=== PATIENT | male | born 1955 | race Caucasian/White ===

== ENCOUNTER → 2018-08-25 | Outpatient (CLI) | payer OTHER ==
--- NOTE | 2018-08-25 06:56 | MR ---
EXAMINATION TYPE: MR shoulder LT wo con DATE OF EXAM: 08/25/2018 COMPARISON: Outside left shoulder x-ray August 04, 2018 HISTORY: Pain in left shoulder per order. Pain with difficulty raising overhead and limited movement for 6 months per patient. TECHNIQUE: Multiplanar, multisequence imaging of the left shoulder is performed without contrast. FINDINGS: Rotator Cuff: There is focal articular surface partial tear noted involving the anterior fibers of th e infraspinatus tendon measuring 10 mm AP diameter parasagittal image 5 and 4 mm transversely paracor onal image 14. Supraspinatus tendon appears intact. Rotator cuff muscle bulk is preserved. Subscapula ris tendon is intact. There is fluid signal subdeltoid/subacromial bursa with slight irregularity ashley ng the bursal surface of the infraspinatus tendon also identified. Acromioclavicular Joint: There is moderate to severe joint space loss with mild to moderate capsular hypertrophy at acromioclavicular joint. Mild to moderate inferior spurring of the distal clavicle is seen. Distal acromion morphology is unremarkable. Loss of underlying fat plane at distal clavicle is noted. Glenohumeral Joint: There is small to moderate glenohumeral joint effusion. There is mild to moderate joint space loss. Labrum: The labrum appears grossly intact given limitation of non-arthrogram study. Biceps Tendon: The long head of biceps is in normal location within bicipital groove. Bone marrow signal: Subchondral cystic change superolateral humeral head is present. Other: No additional significant abnormality is appreciated. IMPRESSION: Partial rim rent tear involving the anterior aspect of the infraspinatus tendon with tend inosis along bursal surface. Moderate to severe AC joint arthropathy with suggestion of underlying im pingement. Correlate clinically.
== END | disposition home or self-care (01) ==
LOC: RADMRIMAIN 06:10
PROVIDERS: ATTEND Orthopaedic Surgery
DX: M75.112 Incomplete rotator cuff tear or rupture of left shoulder, not specified as traumatic (principal); M19.012 Primary osteoarthritis, left shoulder; M75.82 Other shoulder lesions, left shoulder

== ENCOUNTER → 2021-11-06 | Day surgery (SDC) | payer BC, OTHER ==
[2021-11-04 12:42] VITALS: BMI 21.7
--- NOTE | 2021-11-05 17:30 | HP ---
HISTORY AND PHYSICAL DATE OF SURGERY: 11/06/2021 Ron Peacock is a 65-year-old gentleman seen with symptomatic right carpal tunnel syndrome. We discussed options. He elected to proceed with decompression of right median nerve. Consent was obtained. PAST MEDICAL HISTORY: Depression, hypertension, hyperlipidemia. PAST SURGICAL HISTORY: Knee arthroscopy, cataract surgery. DAILY MEDICATIONS: Lisinopril, Lipitor, aspirin. ALLERGIES: NONE. SOCIAL HISTORY: He smokes half pack of cigarettes daily. PHYSICAL EVALUATION OF THE RIGHT HAND: He has a positive carpal compression, carpal Tinel's, exacerbating numbness and tingling throughout the median nerve distribution. He does have some decreased sensation throughout the median nerve distribution. He does not have any triggering of the digits. There is good capillary refill and a good radial pulse present. Radiographs of the wrist reveal some mild osteoarthritic changes. IMPRESSION: 1. Right carpal tunnel syndrome. 2. Hypertension. 3. Hyperlipidemia. PLAN: Decompression, right median nerve. MMODL / IJN: [id number] /
[~2021-11-06] MED LIST: DEXAMETHASONE SOD PHOSPHATE 4 MG/ML 1 ML VIAL IV ONE; HYDROmorphone 0.5 MG/0.5 ML SYRINGE IVP PRN; LACTATED RINGERS 1,000 ML IV ONE; LACTATED RINGERS 1,000 ML IV SCH; LIDOCAINE 1% INJ 10MG/ML (20 ML MDV) SQ ONE; MIDAZOLAM 2 MG/2 ML VIAL ONE; ONDANSETRON 4 MG/2 ML VIAL IVP ONE; PROPOFOL 10 MG/ML 20 ML VIAL IV ONE; fentaNYL (PF) 50 MCG/ML 2 ML AMP ONE
[2021-11-06 12:50] VITALS: TEMP 97.9
--- NOTE | 2021-11-06 17:24 | P.OP ---
Date of Procedure: 11/06/21 Preoperative Diagnosis: Right carpal tunnel syndrome Postoperative Diagnosis: Right carpal tunnel syndrome Procedure(s) Performed: Decompression right median nerve Anesthesia: MAC, local Surgeon: Miguel Angel Gonzalez Estimated Blood Loss (ml): 0 Pathology: none sent Condition: stable Disposition: PACU Indications for Procedure: 65-year-old gentleman seen with symptomatic right carpal syndrome. After treatment options were discussed, he elected to proceed with decompression right median nerve. Operative Findings: See description of procedure Description of Procedure: Patient was taken to the operative suite. He received preoperative IV antibiotics. He underwent IV sedation by the department of anesthesia. Well- padded tourniquet placed proximal right upper extremity. Right upper extremity prepped and draped in the normal sterile orthopedic fashion. I infiltrated the proposed incision site with 10 mL quarter percent plain Marcaine. When sufficient local analgesia was noted the extremity was elevated and tourniquet insufflated to 250. I made an incision beginning at the distal volar wrist crease extending distally approximately 3 cm in line with the fourth metacarpal sharply through skin. Dissection was taken down through the subcutaneous soft tissues and through the palmar fascia to the transverse carpal ligament. I made a small incision through the chairs carpal ligament. I completed the release proximally and distally with blunt Metzenbaums. There was complete release of the transverse carpal ligament. There was good decompression of the nerve. The wound was irrigated. The skin margins were proximal nylon suture. I applied sterile dressings followed by coban. The tourniquet was released with immediate capillary refill noted. The patient was now awakened and transferred to recovery in stable condition.
[2021-11-06 17:42] VITALS: BP 102/64; PULSE 77; RESP 16
== END | disposition home or self-care (01) ==
LOC: OR 12:33
PROVIDERS: ATTEND Orthopaedic Surgery
DX: G56.01 Carpal tunnel syndrome, right upper limb (principal); I10 Essential (primary) hypertension; E78.5 Hyperlipidemia, unspecified; F32.9 Major depressive disorder, single episode, unspecified; Z79.899 Other long term (current) drug therapy; Z79.82 Long term (current) use of aspirin; F17.210 Nicotine dependence, cigarettes, uncomplicated
CPT/HCPCS: 64721; J2250; J1100; J2405; J2001; J3010; J2704

== ENCOUNTER → 2023-12-22 | Outpatient (CLI) | payer MEDICARE, BC ==
--- NOTE | 2023-12-22 11:16 | FL ---
EXAMINATION TYPE: FL barium enema w air contrast DATE OF EXAM: 12/22/2023 COMPARISON: 01/07/2015 HISTORY: colon cancer screening due to previous failed colonoscopies/ torturous colon. TECHNIQUE: A double contrast barium enema study is performed. A total of 3 minute and 55 seconds of fluoroscopic time was utilized during procedure and 28 images obtained. Total dose area product (DA P) in uGy*m?, mGy*cm? (or similar): not provided. FINDINGS: Clarity Developer view of the abdomen shows overall non-obstructive bowel gas pattern. No evidence of any mass or polyp, obstructing or constricting lesion throughout the colon. Minimal d iverticulosis is noted. There is redundancy to the right colon. Some limitation in evaluation of the colonic mucosa due to retained fluid and suboptimal bowel preparation. This may be related to the red undant right colon. Appendix was filled and appeared normal. The terminal ileum was refluxed and appears within normal l imits. fl time 3:55 seconds. Polibar 750mL IMPRESSION: 1. Minimal changes of diverticulosis. 2. Redundant right colon.
== END | disposition home or self-care (01) ==
LOC: RADFLMAIN 07:53
PROVIDERS: ATTEND Surgery
DX: Z12.11 Encounter for screening for malignant neoplasm of colon (principal); Z86.010 Personal history of colon polyps; Q43.8 Other specified congenital malformations of intestine
CPT/HCPCS: 74280